=== PATIENT | male | born 1965 | race Caucasian/White ===

== ENCOUNTER 2018-12-08 14:04 | Outpatient (CLI) | payer MEDICAID ==
[2018-12-08 14:00] VITALS: BP 145/87
[2018-12-08] MEDS ORDERED: LOSARTAN POTAS100 MG ORAL (14:59)
[2018-12-08] MEDS ORDERED: LOW DOSE ASPIRI81 MG PO (14:59)
[2018-12-08] MEDS ORDERED: EDARBI40 MG ORAL (14:59)
--- NOTE | 2018-12-08 15:02 | GI Initial Consult Note ---
History of Present Illness General Date patient seen: Dec 08, 2018 Time patient seen: 14:55 Referring physician: [facility] Reason for Consultation: abdominal pain Present Illness HPI This is a 53-year-old male patient presents today for evaluation of abdominal pain. The patient complains of left upper quadrant pain states it is worse when he inhales with radiation to the right flank. In addition the patient also complains of right lower quadrant pain. Patient has a history of hepatitis C status post treatment pending final hepatitis C quant read. Patient 's abdomen was assessed, mainly noted to be bloated and tympanic in all quadrants. Patient states that he had abdominal pelvis CT approximately 1 month ago, unknown of the results. Patient has no history of endoscopic or colonoscopy. Denies any unintentional weight loss or changes in dietary habits. No signs of abuse or neglect. Patient is not fall risk. Home Meds Reported Medications Aspirin (LOW DOSE ASPIRIN EC) 81 Mg Tablet.dr, 81 MG PO, TAB 12/08/18 Azilsartan Medoxomil (EDARBI) Unknown Strength Tablet, ORAL DAILY, TAB 12/08/18 Losartan Potassium (LOSARTAN POTASSIUM) Unknown Strength Tablet, ORAL DAILY, TAB 12/08/18 Med list reviewed/reconciled: Yes Allergies: Coded Allergies: No Known Allergies (Unverified , 12/08/18) Patient History PMH Narrative Hypertension Hepatitis C treatment Heart disease Past surgical history Patient has a total of 3 cardiac stents, last stent placed within the past 6 months. Pertinent Family History: none Social History: Reports: smoking - 30 year smoker, 10 cigarettes/day, other - tea Review of Systems All Other Systems: negative except mentioned in HPI Physical Exam Temperature 98.1 Blood pressure 145/81 Pulse of 64 95 room air Weight 255 pounds Sp02 EP Interpretation: reviewed, normal General Appearance: well appearing, no apparent distress, alert Head: normocephalic EENT: PERRL/EOMI, normal ENT inspection Neck: supple Respiratory: normal breath sounds, no respiratory distress Cardiovascular: normal rate Gastrointestinal: normal inspection, non tender, soft, normal bowel sounds, non -distended, distended - Tympanic in all 4 quadrants Rectal: deferred Genitourinary: deferred Musculoskeletal: normal inspection, back normal Neurologic: normal inspection, alert, oriented x3, responsive Psychiatric: normal inspection, judgement/insight normal, memory normal Skin: normal inspection, normal color, no rash, warm/dry, palpation normal, well hydrated Lymphatic: normal inspection, no adenopathy GI: Plan Problems: (1) Colonoscopy planned (2) Hypertension (3) Hepatitis C (4) H/O heart artery stent (5) Abdominal pain Plan EGD/colonoscopy to be scheduled pending PA, will contact patient. - CLD & (Nulytely/Suprep/Movi-Prep) prep instructions given and acknowledged by patient. - NPO @ MS day prior procedure explained. Will follow with additional recs post procedure. Seen with Dr. Llanos. Thank you for this patient referral. The patient was seen and examined at bedside and all new and available data was reviewed in the patients chart. I agree with the above findings, impression and plan. (Patient seen earlier today. Signature stamp does not reflect patient encounter time.). - MD Jaida GomezM[facility]ony[facility] MCCONNELL Dec 08, 2018 15:02
== END 2018-12-08 14:44 | disposition home or self-care (01) ==
LOC: PAN 14:04
DX: R10.12 Left upper quadrant pain (principal); R10.31 Right lower quadrant pain; B19.20 Unspecified viral hepatitis C without hepatic coma; I10 Essential (primary) hypertension
CPT/HCPCS: 99202

== ENCOUNTER 2019-02-22 13:05 | Outpatient (CLI) | payer MEDICAID ==
[~2019-02-22] VITALS: Ht 170.2 cm; Wt 78.5 kg
[~2019-02-22 13:05] MED LIST: EDARBI40 MG ORAL; LOSARTAN POTAS100 MG ORAL; LOW DOSE ASPIRI81 MG PO
--- NOTE | 2019-02-22 13:48 | General Progress Note ---
Assessment/Plan Problem List: (1) HP gastrtis (2) colon polyp X3 (3) Hepatitis C ICD Codes: B19.20 - Unspecified viral hepatitis C without hepatic coma SNOMED: 88822639 (4) Hypertension ICD Codes: I10 - Essential (primary) hypertension SNOMED: 22200757 (5) Abdominal pain ICD Codes: R10.9 - Unspecified abdominal pain SNOMED: 50530426 Assessment/Plan treat for HP RTC in 3 months for BT repeat colon in 3 years Subjective ROS Limited/Unobtainable: Yes Allergies: Coded Allergies: No Known Allergies (Unverified , 12/08/18) Objective General Appearance: alert EENT: normal ENT inspection Neck: normal alignment Cardiovascular: normal rate Respiratory/Chest: lungs clear Abdomen: normal bowel sounds, non tender, soft Extremities: non-tender Juan Llanos MD Feb 22, 2019 13:48
[2019-02-22 15:54] VITALS: BP 130/84
== END 2019-02-22 15:05 | disposition home or self-care (01) ==
LOC: PAN 13:05
DX: K29.50 Unspecified chronic gastritis without bleeding (principal); B96.81 Helicobacter pylori [H. pylori] as the cause of diseases classified elsewhere; K63.5 Polyp of colon; B19.20 Unspecified viral hepatitis C without hepatic coma; I10 Essential (primary) hypertension; R10.9 Unspecified abdominal pain
CPT/HCPCS: G0463